=== PATIENT | female | born 1965 | race Caucasian/White ===

== ENCOUNTER 2017-11-07 02:41 | Outpatient (CLI) | payer BC, SELFPAY ==
[2017-11-07 11:13] LABS: Cholesterol 192 mg/dL (50-200); HDL Cholesterol 63 mg/dL (40-60); LDL CHOLESTEROL 121 mg/dL (<100); Triglyceride 81 mg/dL (30-150)
== END 2017-11-07 03:01 ==
PROVIDERS: PCP Emergency Medicine; Visit Provider Nurse Practitioner Family
DX: E78.5 Hyperlipidemia, unspecified (principal)
CPT/HCPCS: 36415; 80061; 83721

== ENCOUNTER 2018-11-07 15:04 | Outpatient (CLI) | payer MEDICAID, SELFPAY ==
--- NOTE | 2018-11-07 | PFT_ITS ---
PULMONARY FUNCTION TEST REPORT Patient - Ciara Terrell DATE OF SERVICE November 07, 2018 REQUESTING PROVIDER Abbie Arevalo M.D. INTERPRETATION OF STUDY Spirometry shows mild obstructive airways disease with no significant bronchodilator response. LUNG VOLUMES - Lung volumes show no evidence of restriction. There is mild to moderate hyperinflation and air trapping. DIFFUSION CAPACITY- Normal. AIRWAY RESISTANCE - Normal. IMPRESSION Mild obstructive airways disease with no significant bronchodilator response. This is associated with mild to moderate hyperinflation and air trapping. Clinical correlation recommended. Maeve Lake M.D. ERIN/ T- 11/13/2018
== END 2018-11-07 15:24 ==
PROVIDERS: PCP Nurse Practitioner Family; Visit Provider Nurse Practitioner Family
DX: J45.909 Unspecified asthma, uncomplicated (principal)
CPT/HCPCS: 94060; 94150; 94726; 94729

== ENCOUNTER 2018-11-12 02:22 | Outpatient (CLI) | payer MEDICAID, SELFPAY ==
[2018-11-12 11:27] LABS: Abs Immature Grans 0.01 k/cumm (0.0-0.09); Absolute Basophil Count 0.04 k/cumm (0.0-0.2); Absolute Eosinophil Count 0.32 k/cumm (0.0-0.7); Absolute Lymphocyte Count 1.86 k/cumm (1.2-3.4); Absolute Monocyte Count 0.43 k/cumm (0.11-0.7); Absolute Neutrophil Count 2.89 k/cumm (1.2-6.7); Basophils % 0.7; Eosinophils % 5.8; HCT 39.9 % (36.0-46.0); HGB 13.2 g/dL (12.0-15.5); Immature Grans % 0.2; Lymphocytes % 33.5; Mean Corp. HGB Concentration 33.1 g/dL (32.0-36.0); Mean Corpuscular Hemoglobin 29.9 pg (27.0-33.0); Mean Corpuscular Volume 90.5 fL (80-95); Mean Platelet Volume 10.4 fL (8.0-11.0); Monocytes % 7.7; Neutrophils % 52.1; Platelet Count 219 x1000/uL (130-400); RBC 4.41 m/cumm (4.00-5.20); RBC Distribution Width 12.6 % (11.7-14.6); White Blood Cell Count 5.55 k/cumm (4.4-10.8)
[2018-11-12 12:29] LABS: ALT 25 U/L (14-59); AST 20 U/L (15-37); Albumin 3.5 g/dL (3.4-5.0); Alkaline Phosphatase 91 U/L (46-116); Anion Gap 9.8 mmol/L (3-11); BUN 13 mg/dL (7-18); Bilirubin, Total 0.5 mg/dL (0.2-1.0); CO2 27.2 mmol/L (21.0-32.0); CREATININE 0.91 mg/dL (0.55-1.02); Calculated LDL 145 mg/dL; Chloride 106 mmol/L (98-107); Cholesterol 213 mg/dL (50-200); Glucose 89 mg/dL (70-100); HDL Cholesterol 54 mg/dL (40-60); Potassium 4.2 mmol/L (3.5-5.1); Sodium 143 mmol/L (136-145); TSH 3.41 uIU/mL (0.36-3.74); Total Protein 6.4 g/dL (6.4-8.2); Triglyceride 73 mg/dL (30-150)
[2018-11-12 15:07] LABS: Hemoglobin A1C 5.7 % (4.5-6.2)
[2018-11-12 20:06] LABS: FREE T4 0.98 ng/dL (0.76-1.46)
[2018-11-14 05:15] LABS: Vitamin D 25 Total 30.3 ng/ml (30-100)
== END 2018-11-12 02:42 ==
PROVIDERS: PCP Nurse Practitioner Family; Visit Provider Nurse Practitioner Family
DX: R73.03 Prediabetes (principal); R53.83 Other fatigue
CPT/HCPCS: 36415; 80053; 80061; 82306; 83036; 84439; 84443; 85025

== ENCOUNTER 2019-01-24 08:17 | Day surgery (SDC) | payer MEDICAID, SELFPAY ==
[2019-01-24 08:36] VITALS: BP 97/65; PULSE 77; RESP 16; TEMP 36.8; O2SAT 95
[2019-01-24] MEDS: Lactated Ringers 1,000 ML 80 ML IV (08:54)
--- NOTE | 2019-01-24 10:14 | W.PM.DSUDISC ---
Discharge Plan Disposition Patient Disposition: HOME Condition: Good Discharge Details Reason For Visit: Colonoscopy Attending Provider: Apolonia Goodson Primary Care Provider: Abbie Arevalo Home Meds and New Rx's Prescriptions: Continued albuterol sulfate [ProAir HFA] 90 mcg/actuation HFA aerosol inhaler 2 puff Inhalation Q4H PRN Qty: 8.5 RF: 4 fluticasone propionate [Allergy Relief (fluticasone)] 50 mcg/actuation spray,suspension 2 spray JOHN DAILY PRNRF: 0 loratadine [Claritin] 10 mg tablet 10 mg PO DAILY PRNRF: 0 montelukast 10 mg tablet 10 mg PO QHS Qty: 90 RF: 4 cholecalciferol (vitamin D3) 1,000 unit capsule 1,000 unit PO BID RF: 0 ascorbic acid (vitamin C) [Vitamin C With Zara Hips] 1,000 mg tablet 1 gm PO BID RF: 0 Symbicort 160-4.5 mcg/actuation HFA aerosol inhaler 1 puff Inhalation BID Qty: 10.2 RF: 4 Discontinued polyethylene glycol 3350 17 gram/dose powder 238 g PO ONCE Qty: 238 RF: 0 bisacodyl [Dulcolax (bisacodyl)] 5 mg tablet,delayed release (DR/EC) 5 mg PO ONCE Qty: 4 RF: 0 Discharge Instructions Additional Instructions: Findings: Your colonoscopy showed mild diverticulosis. No polyps were found. Follow up: Plan for a colonoscopy in 5 years. Please call if you develop: fevers >101.5 Nausea or Vomiting Abdominal pain that is not transient DAY SURGERY UNIT POST COLONOSCOPY INSTRUCTIONS 1. Because there will be medication in your system for the next 24 hours, you may feel a little sleepy. Your coordination will be affected. Therefore: a. Do not drive or operate dangerous equipment for 24 hours. b. Do not drink alcohol beverages for 24 hours (not even beer). c. Plan to go home and rest for the day. 2. Generally there are no restrictions on your activity after a day or so has gone by, but you may feel a bit fatigued for a few days. 3 After you arrive home you may have a light meal and return to a normal diet as you can tolerate it without feeling sick to your stomach. 4. After surgery, you may feel pain or discomfort. This should be only transient, but if it persists please contact your doctor. 5. If there are any questions regarding the findings of your procedure, please feel free to contact your doctor. 6. If you are unable to contact your doctor with a problem, contact the hospital at [phone]. 7. Continue all your regular medications unless directed otherwise. I understand the above instructions and have no questions. Signature of Patient or Responsible Adult Escort Date/Time Name of Responsible Adult Escort Signature of Nurse Date/Time Activity:: Activity as Tolerated Diet:: As Tolerated Discharge Orders Discharge Orders: Discharge Order (Routine); Ordered 01/24/19 Ordered By: Apolonia Goodson DS: Diagnosis Discharge Diagnosis (1) Diverticulosis: Status: Acute
[2019-01-24 10:36] VITALS: BP 103/65; PULSE 72; RESP 16; TEMP 36.4; O2SAT 96
--- NOTE | 2019-01-24 12:38 | COLE_ITS ---
DATE OF PROCEDURE: January 24, 2019 PREOPERATIVE DIAGNOSIS: 1. History of colon polyps. 2. Family history of colon cancer. POSTOPERATIVE DIAGNOSIS: Mild diverticulosis. PROCEDURE: Colonoscopy. SURGEON: Apolonia Goodson M.D. ANESTHESIA: General. INDICATIONS: This is a 53-year-old woman whose last colonoscopy in 2016 showed a tubular adenoma. T he patient has also had a larger polyp removed in the past with the site being tattooed. Her mother was treated for colon cancer. The patient is currently asymptomatic. PROCEDURE: She was placed in the left Escobar position. Propofol was titrated to sedation. Digital re ctal examination revealed no abnormalities. The scope was advanced to the cecum without difficulty. Her prep was excellent. The ileocecal valve was briefly intubated to reveal a normal distal ileum. The scope was slowly withdrawn with no abnormalities seen within the ascending, transverse or descen ding colon. In the mid sigmoid region there was a tattoo with no recurrent or residual polyp identif ied in the region. There was also some mild diverticular change in this vicinity. The remainder of the sigmoid colon and rectum were normal, including on retroflex view. She tolerated the procedure w ell and was stable to recovery. She will need a follow-up colonoscopy in five years. cc: Abbie Arevalo M.D.
== END 2019-01-24 11:30 | disposition home or self-care (01) ==
PROVIDERS: PCP Nurse Practitioner Family; Visit Provider Surgery
PROC: 0DJD8ZZ Inspection of Lower Intestinal Tract, Via Natural or Artificial Opening Endoscopic (ICD-10-PCS; CPT 45378; principal; 2019-01-24 09:30)
DX: Z12.11 Encounter for screening for malignant neoplasm of colon (principal); Z86.010 Personal history of colon polyps; K57.30 Diverticulosis of large intestine without perforation or abscess without bleeding; Z80.0 Family history of malignant neoplasm of digestive organs
CPT/HCPCS: 45378; 81025

== ENCOUNTER 2019-11-18 04:45 | Outpatient (CLI) | payer MEDICAID, SELFPAY ==
[2019-11-18 12:40] LABS: BUN 10 mg/dL (7-18); CREATININE 0.88 mg/dL (0.55-1.02); Calculated LDL 121 mg/dL (<100); Chloride 106 mmol/L (98-107); Cholesterol 191 mg/dL (<200); Glucose 88 mg/dL (74-106); HDL Cholesterol 58 mg/dL (40-60); Potassium 3.8 mmol/L (3.5-5.1); Sodium 142 mmol/L (136-145); Triglyceride 60 mg/dL (<150)
[2019-11-18 13:05] LABS: Hemoglobin A1C 5.5 % (<5.7)
== END 2019-11-18 05:05 ==
PROVIDERS: PCP Nurse Practitioner Family; Visit Provider Nurse Practitioner Family
DX: E78.5 Hyperlipidemia, unspecified (principal); R73.03 Prediabetes
CPT/HCPCS: 36415; 80048; 80061; 83036

== ENCOUNTER 2020-04-26 10:10 | Outpatient (CLI) | payer MEDICAID, SELFPAY ==
[2020-04-27 12:48] LABS: COVID-19 RT-PCR UVMMC Result Positive (Negative)
== END 2020-04-26 10:11 | disposition home or self-care (01) ==
LOC: LBO 10:11
PROVIDERS: PCP Nurse Practitioner Family; Visit Provider Nurse Practitioner Family
DX: Z20.822 Contact with and (suspected) exposure to COVID-19 (principal)
CPT/HCPCS: U0003

== ENCOUNTER 2020-04-29 12:18 | Outpatient (CLI) | payer MEDICAID, SELFPAY ==
[2020-04-29] VITALS (8 sets, daily range): BP systolic 107–121; BP diastolic 65–76; PULSE 83–90; RESP 18; TEMP 37.8–38.6; O2SAT 92–94
[2020-04-29] MEDS: Normal Saline 500 ML 30 ML IV (13:28)
[2020-04-29] MEDS: Normal Saline Flush 10 ML SYR IVP (13:33)
== END 2020-04-29 12:19 | disposition home or self-care (01) ==
PROVIDERS: PCP Nurse Practitioner Family; Visit Provider Family Medicine
DX: U07.1 COVID-19 (principal)
CPT/HCPCS: 96365

== ENCOUNTER 2020-11-12 11:11 | Outpatient (REF) | payer MEDICAID, SELFPAY ==
--- NOTE | 2020-11-12 09:30 | PAPFT_PTH ---
PATIENT: Ciara Terrell LOC: [facility] U#:[id number] AGE/SX: 55/F ROOM: RE11/12/[address]: Lina Coates, PhD UI ENGINEER : 1965 BED: DIS: 11/12/2020 SPEC #: [id number] RECD: 11/12/20 13:04 STATUS: VICTORINO REJs #: [id number] RONNI: 11/12/20 09:[address]: Lina Coates DEPT: REPLACED BY [facility] Cytology RECD BY: Romina Resendez ENTERED: 11/12/20 13:05 SP TYPE: PAPFT OTHR DR: Abbie Arevalo, BASILIA Tissues: 1 - CX/ENDOCX FOR PAP SMEARS Procedures: PAP THIN PREP/[facility] Screening HPV DNA PROBE Comments: [id number]
== END 2020-11-12 11:12 | disposition home or self-care (01) ==
LOC: LBN 11:11
PROVIDERS: PCP Nurse Practitioner Family; Visit Provider Nurse Practitioner
DX: Z12.4 Encounter for screening for malignant neoplasm of cervix (principal); Z11.51 Encounter for screening for human papillomavirus (HPV)
CPT/HCPCS: 88142; 87624

== ENCOUNTER 2021-12-06 03:48 | Outpatient (CLI) | payer MEDICAID, SELFPAY ==
[2021-12-06 12:24] LABS: Hemoglobin A1C 5.8 % (<5.7)
[2021-12-06 12:29] LABS: Anion Gap 3.3 mmol/L (3-11); BUN 13 mg/dL (7-18); CO2 30.7 mmol/L (21.0-32.0); CREATININE 0.9 mg/dL (0.55-1.02); Calcium 9.1 mg/dL (8.5-10.1); Calculated LDL 148 mg/dL (<100); Chloride 105 mmol/L (98-107); Cholesterol 227 mg/dL (<200); Estimated GFR 74.57 (mL/min/1.73m2); Glucose 97 mg/dL (74-106); HDL Cholesterol 67 mg/dL (40-60); Potassium 4.2 mmol/L (3.5-5.1); Sodium 139 mmol/L (136-145); Triglyceride 62 mg/dL (<150)
== END 2021-12-06 03:49 | disposition home or self-care (01) ==
PROVIDERS: PCP Nurse Practitioner Family; Visit Provider Nurse Practitioner Family
DX: E78.5 Hyperlipidemia, unspecified (principal); R73.09 Other abnormal glucose
CPT/HCPCS: 36415; 80048; 80061; 83036

== ENCOUNTER 2022-12-19 16:32 | Outpatient (CLI) | payer MEDICAID, SELFPAY ==
[2022-12-19 15:34] LABS: Hemoglobin A1C 5.7 % (<5.7)
[2022-12-19 17:22] LABS: Anion Gap 8.3 mmol/L (3-11); BUN 15 mg/dL (7-18); CO2 29.7 mmol/L (21.0-32.0); CREATININE 1.1 mg/dL (0.55-1.02); Chloride 106 mmol/L (98-107); Estimated GFR 58.24 (mL/min/1.73m2); Glucose 94 mg/dL (74-106); Potassium 3.9 mmol/L (3.5-5.1); Sodium 144 mmol/L (136-145)
[2022-12-19 21:17] LABS: Lab Add On Test DONE
[2022-12-21 09:23] LABS: Hepatitis C Ab w Rflx HCV PCR Negative (Negative)
== END 2022-12-19 16:33 | disposition home or self-care (01) ==
LOC: LBO 16:33
PROVIDERS: PCP Nurse Practitioner Family; Visit Provider Nurse Practitioner Family
DX: E78.5 Hyperlipidemia, unspecified (principal); R73.03 Prediabetes; J45.30 Mild persistent asthma, uncomplicated; Z00.00 Encounter for general adult medical examination without abnormal findings; Z11.59 Encounter for screening for other viral diseases
CPT/HCPCS: 36415; 80048; 86803; 83036

== ENCOUNTER 2024-01-29 20:40 | Emergency (ER) | payer MEDICAID, SELFPAY ==
[2024-01-29] VITALS (10 sets, daily range): BP systolic 102–152; BP diastolic 49–96; PULSE 87–103; RESP 13–20; TEMP 37; O2SAT 90–98
--- NOTE | 2024-01-29 20:45 | DI.RAD_ITS ---
Exam(s) XR KNEE LT 2V AP,LAT EXAM: XR KNEE LT 2V AP,LAT CLINICAL HISTORY: fall, injury. TECHNIQUE: 2D digital imaging was performed. COMPARISON: No exams were available for comparison FINDINGS: Two portable views: There is ah comminuted and depressed fracture both tibial plateaus, medial lateral and also extending into the tibial metaphysis. There is also a comminuted fracture of the proximal fibula. Joint effu erick-hemarthrosis noted. No radiopaque foreign bodies. No osseous lesions. IMPRESSION: Comminuted and depressed tibial plateau fracture extending into the tibial metaphysis. There is also a comminuted fracture of the proximal fibula. DATA REPOSITORY: RADIATION DOSE DELIVERED:
--- NOTE | 2024-01-29 20:45 | DI.RAD_ITS ---
Exam(s) XR HIP LT COMPLETE AP PELVIS EXAM: XR HIP LT COMPLETE AP PELVIS CLINICAL HISTORY: leg injury. TECHNIQUE: 2D digital imaging was performed. COMPARISON: No exams were available for comparison FINDINGS: Two views No evidence of acute pelvic nor hip fracture. There are 2 surgical nails projected over the intertro chanteric region of the right hip. No fracture seen at this level. No left hip fracture. Pubic fadi i appear intact. SI joints unremarkable. Chronic disc space narrowing noted in the lumbar spine. IMPRESSION: No acute fractures evident DATA REPOSITORY: RADIATION DOSE DELIVERED:
[2024-01-29] MEDS: MORPHine 4 MG/ML SYR IVP ×2 (21:05→23:01)
[2024-01-29] MEDS: ACETAMINOPHEN 650 MG/65 ML BAG 260 MG IVPB (21:06)
[2024-01-29 21:08] LABS: Abs Immature Grans 0.04 10^3/uL (0.0-0.06); Absolute Basophil Count 0.06 10^3/uL (0.0-0.2); Absolute Eosinophil Count 0.27 10^3/uL (0.0-0.7); Absolute Lymphocyte Count 3.52 10^3/uL (1.2-3.4); Absolute Monocyte Count 0.77 10^3/uL (0.1-0.8); Absolute Neutrophil Count 5.65 10^3/uL (1.2-6.7); Basophils % 0.6 %; Eosinophils % 2.6 %; HCT 36.6 % (36.0-46.0); Immature Grans % 0.4 %; Lymphocytes % 34.1 %; MCH 29.6 pg (27.0-33.0); MCHC 32.8 % (32.0-36.0); MCV 90 fL (80-95); MPV 9.8 fL (8.0-11.0); Monocytes % 7.5 %; Neutrophils % 54.8 %; Platelet Count 194 10^3/uL (130-400); RBC 4.06 10^6/uL (3.93-5.22); RDW 12.2 % (11.7-14.6); RDW-SD 39.8 fL; WBC 10.31 10^3/uL (4.4-10.8)
[2024-01-29 21:23] LABS: ALT 19 U/L (14-59); AST 27 U/L (15-37); Alkaline Phosphatase 139 U/L (46-116); Anion Gap 9.1 mmol/L (3-11); BUN 26 mg/dL (7-18); CO2 26.9 mmol/L (21.0-32.0); CREATININE 1.2 mg/dL (0.55-1.02); Calcium 8.5 mg/dL (8.5-10.1); Chloride 109 mmol/L (98-107); Estimated GFR 52.14 (mL/min/1.73m2); Glucose 139 mg/dL (74-106); Potassium 4.1 mmol/L (3.5-5.1); Sodium 145 mmol/L (136-145); Total Protein 6.4 g/dL (6.4-8.2)
--- NOTE | 2024-01-29 22:42 | DI.RAD_ITS ---
Exam(s) XR CHEST 1V IN DI DEPT EXAM: XR CHEST 1V IN DI DEPT CLINICAL HISTORY: trauma. TECHNIQUE: 2D digital imaging was performed. COMPARISON: CR CHEST 2 VIEWS PA,LAT from 05/25/2010 FINDINGS: Single AP portable view. Heart size is upper normal. The mediastinum is not widened. Right lung is clear. There is slightly increased markings in the left upper lobe suprahilar region. There are also surgical clips in left axilla and projected over the left hilar region, not previousl y present. No pleural effusions. No pneumothorax. No obvious fractures. IMPRESSION: Subtle suggestion of left upper lobe infiltrate.No pleural effusions nor pneumothorax. Surgical clips on the left side are noted. DATA REPOSITORY: RADIATION DOSE DELIVERED:
--- NOTE | 2024-01-29 22:42 | DI.RAD_ITS ---
Exam(s) XR TIB/FIB LT EXAM: XR TIB/FIB LT CLINICAL HISTORY: fall injury, deformity proximally. TECHNIQUE: 2D digital imaging was performed. COMPARISON: No exams were available for comparison FINDINGS: 3 views There is a comminuted depressed tibial plateau fracture involving both tibial plateaus and extending through the metaphysis to the level the anterior tibial tubercle. Some displacement evident. There is also a comminuted fracture of the proximal fibula with minimal displacement. There are no f ractures lower down in the tibia and fibula. IMPRESSION: Comminuted tibial plateau fracture extending into the metaphysis and anterior tibial tubercle. Also fracture of the proximal fibula. DATA REPOSITORY: RADIATION DOSE DELIVERED:
--- NOTE | 2024-01-29 22:56 | ED.GENADUL_ITS ---
Discharge Plan Discharge Details Chief Complaint: Orthopedic Primary Care Provider: Abbie Arevalo ED Provider: Romina Bateman Home Meds and New Rx's Prescriptions: No Action omega 0-dhl-uwv-fish oil [Fish Oil] 1,000 mg (120 mg-180 mg) capsule 1 cap PO DAILY ascorbic acid (vitamin C) [Vitamin C With Zara Hips] 1,000 mg tablet 1 gm PO BID budesonide-formoterol [Symbicort] 160-4.5 mcg/actuation HFA aerosol inhaler 2 puff Inhalation BID Qty: 10.2 4RF [id number]-[id number]-[id number] Tablet See Rx Instructions PO DAILY Rx Instructions: 1000mg; 400mg; 25mg orally daily; cholecalciferol (vitamin D3) 50 mcg (2,000 unit) capsule 200 mcg PO DAILY Quercetin w/ Bromelain See Rx Instructions .ROUTE DAILY Rx Instructions: 800mg; 165mg daily; levalbuterol tartrate 45 mcg/actuation HFA aerosol inhaler 2 inh inhalation Q6H Qty: 15 0RF montelukast 10 mg tablet 10 mg PO QHS Qty: 90 3RF letrozole 2.5 mg tablet 2.5 mg PO DAILY Patient Comments: TAKE ONE TABLET BY MOUTH EVERY DAY HPI General Date/Time Provider Initiated Documentation: 01/29/24 20:43 . HPI Narrative: This 58-year-old female with history of left breast CVA with recent mastectomy, asthma, hyperlipidemia, prediabetes presents with report of standing on 3 foot stepstool when the top of the stool broke and she fell down, twisting and planting her left leg. She felt a snap and instant pain and was unable to ambulate. She denies head injury or any additional acquired injuries. She denies any numbness or tingling into her foot or history of coagulopathy. She denies any neck or abdominal pain. She denies any chest pain or shortness of breath. Related Data Home Medications ?Medication ?Instructions ?Recorded ?Confirmed ascorbic acid (vitamin C) 1,000 mg 1 gm PO BID 12/11/18 01/29/24 tablet (Vitamin C With Zara Hips) omega 1-wrw-axz-fish oil 1,000 mg 1 cap PO DAILY 04/10/19 01/29/24 (120 mg-180 mg) capsule (Fish Oil) Quercetin w/ Bromelain See Rx Instructions .Route DAILY 09/29/22 01/29/24 symqaev-qeeqwhdlm-nlxl tablet See Rx Instructions PO DAILY 09/29/22 01/29/24 cholecalciferol (vitamin D3) 50 200 mcg PO DAILY 09/29/22 01/29/24 mcg (2,000 unit) capsule levalbuterol tartrate 45 2 inh inhalation Q6H #15 grams 05/29/23 01/29/24 mcg/actuation aerosol inhaler budesonide-formoterol HFA 160 2 puff inhalation BID #10.2 grams 09/12/23 01/29/24 mcg-4.5 mcg/actuation aerosol inhaler (Symbicort) montelukast 10 mg tablet 10 mg PO QHS #90 tabs 01/01/24 01/29/24 letrozole 2.5 mg tablet 2.5 mg PO DAILY 01/29/24 01/29/24 Previous Rx's ?Medication ?Instructions ?Recorded levalbuterol tartrate 45 2 inh inhalation Q6H #15 grams 05/29/23 mcg/actuation aerosol inhaler budesonide-formoterol HFA 160 2 puff inhalation BID #10.2 grams 09/12/23 mcg-4.5 mcg/actuation aerosol inhaler (Symbicort) montelukast 10 mg tablet 10 mg PO QHS #90 tabs 01/01/24 Allergies Allergy/AdvReac Type Severity Reaction Status Date / Time levonorgestrel AdvReac Severe Vision Verified 01/29/24 20:48 problems, heart racing General Stated Complaint: Orthopedic FRITZ: 3 Exam Narrative Exam Narrative: 58-year-old female alert and oriented, acutely uncomfortable, pupils equal round reactive to light and accommodation, no visible signs of head injury, no cervical spine tenderness, no visible sign of chest wall trauma, lungs clear to auscultation, cardiac rate rhythm regular, no abdominal tenderness or pelvic t enderness appreciated, no left hip tenderness appreciated, no visible signs of trauma, left knee with ecchymosis just distal to the knee with swelling, no obvious deformity, no tenderness to left ankle, neurovascularly intact. GCS 15 right now Course Vital Signs Vital signs: Vital Signs Temperature 37.0 C 01/29/24 20:38 Pulse 103 H 01/29/24 20:38 Respiratory Rate 18 01/29/24 20:38 Blood Pressure 152/96 H 01/29/24 20:38 Pulse Oximetry 98 01/29/24 20:38 Temperature 37.0 C 01/29/24 20:38 Pulse 103 H 01/29/24 20:38 Respiratory Rate 18 01/29/24 20:38 Respiratory Effort Non-Labored 01/29/24 20:45 Blood Pressure 152/96 H 01/29/24 20:38 Pulse Oximetry 98 01/29/24 20:38 Pain Level 9 01/29/24 21:05 Lab/Test Results Lab/Test Results: Laboratory Tests Range/Units 01/29/24 20:48 WBC (4.4-10.8) 10^3/uL 10.31 RBC (3.93-5.22) 10^6/uL 4.06 Hgb (11.2-15.7) g/dL 12.0 Hct (36.0-46.0) % 36.6 MCV (80-95) fL 90 MCH (27.0-33.0) pg 29.6 MCHC (32.0-36.0) % 32.8 RDW (11.7-14.6) % 12.2 Plt Count (130-400) 10^3/uL 194 MPV (8.0-11.0) fL 9.8 Immature Gran % % 0.4 Neutrophils % % 54.8 Lymphocytes % % 34.1 Monocytes % % 7.5 Eosinophils % % 2.6 Basophils % % 0.6 Nucleated RBC % (0.0-0.3) % 0.0 Absolute Neutrophils (1.2-6.7) 10^3/uL 5.65 Absolute Lymphocytes (1.2-3.4) 10^3/uL 3.52 H Absolute Monocytes (0.1-0.8) 10^3/uL 0.77 Absolute Eosinophils (0.0-0.7) 10^3/uL 0.27 Absolute Basophils (0.0-0.2) 10^3/uL 0.06 Sodium (136-145) mmol/L 145 Potassium (3.5-5.1) mmol/L 4.1 Chloride (98-107) mmol/L 109 H Carbon Dioxide (21.0-32.0) mmol/L 26.9 Anion Gap (3-11) mmol/L 9.1 BUN (7-18) mg/dL 26 H Creatinine (0.55-1.02) mg/dL 1.2 H Est GFR (CKD-EPI 2020) (mL/min/1.73m2) 52.14 Glucose (74-106) mg/dL 139 H Calcium (8.5-10.1) mg/dL 8.5 Total Bilirubin (0.2-1.0) mg/dL 0.30 AST (15-37) U/L 27 ALT (14-59) U/L 19 Alkaline Phosphatase (46-116) U/L 139 H Total Protein (6.4-8.2) g/dL 6.4 Albumin (3.4-5.0) g/dL 3.0 L Procedures Orthopedic Splinting/Casting Injury #1: Side: left Lower Extremity Injury Location: knee Lower Extremity Immobilizer: posterior splint Additional Comments: Remains neurovascularly intact pre and postprocedure Medical Decision Making 58-year-old female presenting with trauma to left knee just prior to arrival. Ecchymosis left lower leg and given trauma, I did order x-ray of chest, pelvis, knee, tib-fib. Evidence of severe tibial plateau fracture with intra-articular involvement grade 6 after discussion with our orthopedist, Dr. Genao. Dr Genao feels patient needs transfer to tertiary care facility given this is a shatzker tibial plateau fracture and the risk of compartment syndrome is very high. the patient was placed in a long-leg splint and remains neurologically neurovascularly intact, 2302. No evidence of compartment syndrome at this time, ice applied to either side of site. [facility] 2330, pending return phone call at this time. [facility] has declined patient secondary to capacity. Films were pushed to [facility] at 1120 and facesheet was sent, pending return phone call. 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 HER-2/vesta negative. S/p partial mastectomy, radiation, tamoxifen. Followed annually by [facility] Tubular adenoma of colon (~2015) Surgical History (Updated 01/03/24 @ 11:05 by Abbie Arevalo NP) History of left total mastectomy (11/02/23) History of bilateral tubal ligation S/P colonoscopy (01/24/19) S/P cholecystectomy History of partial mastectomy of left breast (05/2010) Family History Mother , at 74 of renal failure Hyperlipidemia Colon cancer Hypertension Father , at 68 of aneurysm Depression Hyperlipidemia Heart disease Myocardial infarction Hypertension Sister No problems noted. Sister , at 64 of uterine cancer Uterine cancer Hypertension Hyperlipidemia Asthma Depression Brother No problems noted. Son ADHD (attention deficit hyperactivity disorder), inattentive type Asthma Daughter Depression Maternal Grandfather , in his 70s No problems noted. Maternal Grandmother , at 83 Neoplasm Unknown type Heart disease Paternal Grandfather , at 94 Dementia Paternal Grandmother , at 84 Breast cancer Social History Smoking/Tobacco Use Status: Former Tobacco Use tobacco type: cigarettes Second Hand Exposure: Yes Smoking risk assessment performed?: Yes Alcohol Intake: current Alcohol Intake frequency: holidays/special occasions only Alcohol type: wine Drug use: Never Substance use type: does not use Caregiver/Support person: No Household members: spouse and children Housing: house Communication Needs: Corrective Lenses Do you need help understanding health information?: Often current occupation: [employer] Pets and animals: No Sexually active: No Do you think of yourself as: straight/heterosexual Current gender identity: female What is your relationship status?: How often do you talk on the phone with friends or family?: twice per week How often do you get together with friends or relatives?: once per week How often do you attend adventism or temple services?: 4 or more times per year Do you belong to any clubs or organized social groups?: no Panel score (0-1 are the most socially isolated patients): 3 What type of physical activity do you participate in: walking Duration: < 15 minutes/day Frequency: 5-6 times per week Stephany/Catholic: Mormon Seatbelt use: always Drive intox or ride w/intox class b truck driver: No Do you feel safe at home: Yes Do you feel safe in your relationship?: Yes Female Reproductive History Menstrual Menopause type: natural Date of menopause: 11/19/11 History History 3 Para 2 Hx # Term Pregnancies Multiple births Hx # Pregnancies Ectopic pregnancies AB induced Hx Number of Living Children 2 AB spontaneous 1
[2024-01-30] VITALS (16 sets, daily range): BP systolic 124–142; BP diastolic 59–73; PULSE 93–101; RESP 12–19; O2SAT 89–94
--- NOTE | 2024-01-30 00:04 | DI.VRAD_ITS ---
PROCEDURE INFORMATION: Exam: XR Left Tibia and Fibula Exam date and time: 01/29/2024 9:59 PM Age: 58 years old Clinical indication: Injury or trauma; Fracture, traumatic; Closed fracture; Patella or knee; Left; Injury details: Fall - PT unable to move. Best images possible TECHNIQUE: Imaging protocol: Radiologic exam of the left tibia and fibula. Views: 2 views. COMPARISON: CR XR KNEE LT 3V AP,LAT,SHALONDA 01/29/2024 9:53 PM FINDINGS: Bones/joints: Comminuted depressed tibial plateau fracture involving both tibial plateaus, the tibial eminence in the proximal tibial metaphysis. Oblique comminuted nondisplaced fracture through the proximal fibula. Large suprapatellar joint effusion. Soft tissues: Normal. IMPRESSION: 1. Comminuted depressed tibial plateau fracture involving both tibial plateaus, the tibial eminence in the proximal tibial metaphysis. 2. Oblique comminuted nondisplaced fracture through the proximal fibula. 3. Large suprapatellar joint effusion. Dictated and Authenticated by: Marli Mcdermott MD. Ordering:CHRISTIN Vanegas MD
--- NOTE | 2024-01-30 00:05 | DI.VRAD_ITS ---
PROCEDURE INFORMATION: Exam: XR Chest Exam date and time: 01/29/2024 10:23 PM Age: 58 years old Clinical indication: Injury or trauma; Fall; Blunt trauma (contusions or hematomas) TECHNIQUE: Imaging protocol: Radiologic exam of the chest. Views: 1 view. COMPARISON: CT CHEST FOR PULMONARY EMBOLUS 03/09/2017 5:59 PM FINDINGS: Lungs: Perihilar atelectasis. Pleural spaces: Unremarkable. No pleural effusion. No pneumothorax. Heart/Mediastinum: Unremarkable. No cardiomegaly. Bones/joints: Unremarkable. Soft tissues: Left chest wall and axillary surgical clips. IMPRESSION: No acute findings Dictated and Authenticated by: Marli Mcdermott MD. Ordering:CHRISTIN Vanegas MD
--- NOTE | 2024-01-30 00:06 | DI.VRAD_ITS ---
PROCEDURE INFORMATION: Exam: XR Left Hip Exam date and time: 01/29/2024 9:48 PM Age: 58 years old Clinical indication: Injury or trauma; Fall; Blunt trauma (contusions or hematomas); Left; Hip; Injury details: Trauma - knee. Best images possible TECHNIQUE: Imaging protocol: Radiologic exam of the left hip. Views: 2 or 3 views hip with pelvis when performed. COMPARISON: No relevant prior studies available. FINDINGS: Bones/joints: Unremarkable. No acute fracture. Soft tissues: Surgical nails within the proximal right femur. IMPRESSION: No acute findings. Dictated and Authenticated by: Marli Mcdermott MD. Ordering:CHRISTIN Vanegas MD
--- NOTE | 2024-01-30 00:07 | DI.VRAD_ITS ---
PROCEDURE INFORMATION: Exam: XR Left Knee Exam date and time: 01/29/2024 9:53 PM Age: 58 years old Clinical indication: Injury or trauma; Fracture, traumatic; Closed fracture; Patella or knee; Left; Injury details: Fall. PT unable to move - best images possible TECHNIQUE: Imaging protocol: Radiologic exam of the left knee. Views: 1 or 2 views. COMPARISON: BILATERAL EXTREMITY US 03/09/2017 4:25 PM FINDINGS: Bones/joints: Comminuted depressed tibial plateau fracture extending to both tibial plateaus, the tibial eminence in the proximal tibial metaphysis. Comminuted proximal fibula fracture. Large suprapatellar joint effusion. Soft tissues: Normal. IMPRESSION: 1. Comminuted depressed tibial plateau fracture extending to both tibial plateaus, the tibial eminence in the proximal tibial metaphysis. 2. Comminuted proximal fibula fracture. 3. Large suprapatellar joint effusion. Dictated and Authenticated by: Marli Mcdermott MD. Ordering:CHRISTIN Vanegas MD
--- NOTE | 2024-01-30 01:32 | W.EDPROG ---
Date of service: 01/30/24 Time of Service: 01:34 Medical Decision Making This patient was obtained in signout at approximately 11:30 PM with plans to discuss the case with a tertiary care center for transfer as the patient was not excepted by orthopedics here at this facility secondary to the type of fracture, the patient's body habitus, and concerns of possible hypoxia in the operative setting. I discussed case with Dr. Shi at [facility] except the patient as an ED to ED transfer for multistage repair of the left lower extremity fracture. Quality:SDOH Health Related Social Needs: No Data to Display Discharge Plan Disposition Patient Disposition: Transfer-Acute Inpatient Care Specific Acute Inpt Facility: Other Condition: Stable Discharge Details Chief Complaint: Orthopedic Clinical Impression: Closed fracture of left tibia and fibula Primary Care Provider: Abbie Arevalo ED Provider: Chito Restrepo Home Meds and New Rx's Prescriptions: No Action omega 3-zmy-nlz-fish oil [Fish Oil] 1,000 mg (120 mg-180 mg) capsule 1 cap PO DAILY ascorbic acid (vitamin C) [Vitamin C With Zara Hips] 1,000 mg tablet 1 gm PO BID budesonide-formoterol [Symbicort] 160-4.5 mcg/actuation HFA aerosol inhaler 2 puff Inhalation BID Qty: 10.2 4RF pqnqjkt-rszlfbcsf-kkkj Tablet See Rx Instructions PO DAILY Rx Instructions: 1000mg; 400mg; 25mg orally daily; cholecalciferol (vitamin D3) 50 mcg (2,000 unit) capsule 200 mcg PO DAILY Quercetin w/ Bromelain See Rx Instructions .ROUTE DAILY Rx Instructions: 800mg; 165mg daily; levalbuterol tartrate 45 mcg/actuation HFA aerosol inhaler 2 inh inhalation Q6H Qty: 15 0RF montelukast 10 mg tablet 10 mg PO QHS Qty: 90 3RF letrozole 2.5 mg tablet 2.5 mg PO DAILY Patient Comments: TAKE ONE TABLET BY MOUTH EVERY DAY
[2024-01-30] MEDS: MORPHine 4 MG/ML SYR IVP (02:29)
== END 2024-01-30 03:24 | disposition short-term general hospital (02) ==
PROVIDERS: Physician Assistant; Emergency Provider Emergency Medicine Emergency Medical Services; PCP Nurse Practitioner Family
DX: S82.252A Displaced comminuted fracture of shaft of left tibia, initial encounter for closed fracture (principal); S82.452A Displaced comminuted fracture of shaft of left fibula, initial encounter for closed fracture; M25.062 Hemarthrosis, left knee; W11.XXXA Fall on and from ladder, initial encounter; Y93.H9 Activity, other involving exterior property and land maintenance, building and construction; Y92.018 Other place in single-family (private) house as the place of occurrence of the external cause
CPT/HCPCS: 00123; 80053; 96365; 96375; 96376; 99285; 71045; 73502; 73560; 73590; 85025; J0131; J2270

== ENCOUNTER 2024-10-06 14:06 | Outpatient (CLI) | payer MEDICAID, SELFPAY ==
--- NOTE | 2024-10-06 11:30 | DI.RAD_ITS ---
Exam(s) XR CHEST 2V PA LATERAL EXAM: XR CHEST 2V PA LATERAL CLINICAL HISTORY: Cough, R05.9; eval pna. TECHNIQUE: 2D digital imaging was performed. COMPARISON: CR,XR XR CHEST 1V IN DI DEPT from 01/29/2024 FINDINGS: 2 views: Heart size is normal. The mediastinum is not widened. There is now subsegmental platelike atelectasis in both lung bases. No confluent infiltrates and no pleural effusions. No pulmonary edema. Again noted is evidence of left mastectomy and left axillary simon dissection clips IMPRESSION: There is subsegmental platelike atelectasis in both lung bases. This was not evident on chest x-ray of 01/29/2024. DATA REPOSITORY: RADIATION DOSE DELIVERED:
== END 2024-10-06 14:26 ==
LOC: DI 10-16 14:07
PROVIDERS: PCP Nurse Practitioner Family; Visit Provider Nurse Practitioner Family
DX: R05.9 Cough, unspecified (principal); J98.11 Atelectasis
CPT/HCPCS: 71046

== ENCOUNTER 2024-11-13 09:12 | Day surgery (SDC) | payer MEDICAID, SELFPAY ==
--- NOTE | 2024-11-03 10:17 | PDOC.ANES ---
Date of service: 11/03/24 Time of Service: 10:00 Anesthesia Note Report Anesthesia Note: I called and spoke with Ciara about her upcoming colonoscopy. She had some concerns/questions regarding the anesthesia options. She states that with her mastectomy, and orthopedic/fracture surgeries that she had a hard time clearing mental fog. She also states that she doesn't recall issues related to anesthesia and her last colonoscopy (propofol). Discussed that we use just propofol for colos and that her risk of mental fog does exist, but is much lower than her previous larger surgeries. All questions were anwsered, and she understands she can reach out if any further questions arise.
[2024-11-13 09:36] VITALS: BP 115/79; PULSE 86; RESP 18; TEMP 36.5; O2SAT 96
[2024-11-13] MEDS: Lactated Ringers 1,000 ML 80 ML IV (09:56)
--- NOTE | 2024-11-13 10:19 | W.ANESPRE ---
General Info Date of Service Date Performed: 11/13/24 Height: 5 ft 5.5 in Weight: 112.1 kg Body Mass Index (BMI): 40.5 Surgical Procedure: Operation Date: 11/13/24 11:20 Proposed Procedure Side Surgeon vernell Worley MD Meds Allergies and Home Medications Allergies Allergy/AdvReac Type Severity Reaction Status Date / Time levonorgestrel AdvReac Severe Vision Verified 11/13/24 09:29 problems, heart racing Home Medication ?Medication ?Instructions ?Recorded omega 9-kly-qtc-fish oil 1,000 mg 1 cap PO DAILY 04/10/19 (120 mg-180 mg) capsule (Fish Oil) Quercetin w/ Bromelain See Rx Instructions .Route DAILY 09/29/22 mnsavyn-ubsqnnbcd-yzjw tablet See Rx Instructions PO DAILY 09/29/22 cholecalciferol (vitamin D3) 50 200 mcg PO DAILY 09/29/22 mcg (2,000 unit) capsule levalbuterol tartrate 45 2 inh inhalation Q6H #15 grams 05/29/23 mcg/actuation aerosol inhaler montelukast 10 mg tablet 10 mg PO QHS #90 tabs 01/01/24 letrozole 2.5 mg tablet 2.5 mg PO DAILY 01/29/24 budesonide-formoterol HFA 160 2 puff inhalation BID #10.2 grams 07/15/24 mcg-4.5 mcg/actuation aerosol inhaler (Symbicort) bisacodyl 5 mg tablet,delayed 5 mg PO ONCE #4 tabs 10/29/24 release (Dulcolax (bisacodyl)) polyethylene glycol 3350 17 17 g PO ONCE #238 grams 10/29/24 gram/dose oral powder Current Visit Medications: Current Medications Generic Name Dose Route Start Last Admin Trade Name Freq PRN Reason Stop Dose Admin Ringer's Solution 1,000 mls @ 80 mls/hr 11/13/24 06:00 11/13/24 09:56 IV 11/13/24 23:59 80 mls/hr INFUSION ANITA Administration IV Miscellaneous Supplies 1 each 11/13/24 06:00 Iv Access IV 11/13/24 23:59 DIRECTED ANITA Sodium Biphosphate/Sodium Phosphate 133 - 266 ml 11/13/24 06:00 Na Phosphate Enema-Adult 133 Ml Btl HI 11/13/24 23:59 PRN PRN Sodium Chloride 0 ml 11/13/24 06:00 Normal Saline Flush 10 Ml Syr IV 11/13/24 23:59 PRN PRN Sodium Chloride 0 ml 11/13/24 06:00 Normal Saline 10 Ml Vial IJ 11/13/24 23:59 DIRECTED PRN Sterile Water 0 ml 11/13/24 06:00 Water,Injection,Sterile 10 Ml Vial IJ 11/13/24 23:59 DIRECTED PRN PFSH Active Problems Active Problems: Problem Status Onset Code Recurrent cancer of left breast Acute ~09/2023 C50.912 Asthma Chronic J45.909 History of pulmonary embolism Chronic 01/2024 Z86.711 Hyperlipidemia Chronic E78.5 Allergic rhinitis Chronic J30.9 Obesity Chronic E66.9 Sigmoid diverticulosis Chronic K57.30 Medical History Medical History Pulmonary embolism (~01/2024) Ductal carcinoma in situ (DCIS) of left breast (2010) DCIS 2010 S/p partial mastectomy, radiation, tamoxifen IDC 09/2023 s/p total mastectomy Tubular adenoma of colon (~2015) Surgical History Surgical History S/P ORIF (open reduction internal fixation) fracture For complex left tibial plateau fracture and proximal fibular fracture. LCL repair and lateral meniscus repair of left knee also done History of left total mastectomy (11/02/23) History of bilateral tubal ligation S/P colonoscopy (01/24/19) S/P cholecystectomy History of partial mastectomy of left breast (05/2010) Tobacco Smoking/Tobacco Use Status: Never Passive smoking exposure: No Second hand exposure: Yes Alcohol Alcohol Intake: current Alcohol intake frequency: a few times a week Alcohol type: wine and hard liquor Substance Use Substance use: Never Substance use type: does not use Prental History History 3 Para 2 Hx # Term Pregnancies Multiple births Hx # Pregnancies Ectopic pregnancies AB induced Hx Number of Living Children 2 AB spontaneous 1 Vital Signs and Lab Results Vital Signs Most Recent Vital Signs in EMR: Most Recent Vital Signs Temp Pulse Resp BP Pulse Ox 36.5 C 86 18 115/79 96 11/13/24 09:36 11/13/24 09:36 11/13/24 09:36 11/13/24 09:36 11/13/24 09:36 Imaging and Studies Imaging and Studies Study information below may be from another EMR and interpreted by another provider. Please see original notes in EMR for more complete details. Pulmonary Function Summary: 10/2018:IMPRESSION Mild obstructive airways disease with no significant bronchodilator response. This is associated with mild to moderate hyperinflation and air trapping. Clinical correlation recommended. Anesthesia Assessment and Plan Anesthesia History Personal History: No History of Anesthesia Complications Family History: No Family History of Anesthesia Complications Exercise Tolerance Exercise Tolerance: Metabolic Equivalents>4 Pertinent Negatives Pertinent Negatives: No Major Cardiovascular Symptoms or Complaints and No Major Pulmonary Symptoms or Complaints Cardiac & Pulmonary Exam Cardiac Exam: Normal S1/S2 Heart Sounds Pulmonary Exam: Clear Bilateral Breath Sounds Implantable Cardiac Device Does patient have a Pacemaker or an ICD?: No Airway Exam Known Difficult Airway: No Mallampati Class: 2 Mouth Opening: Normal (> 3cm) Thyromental Distance: Less than 3 cm Neck Range of Motion: Full ROM Neck Circumference: Thick Teeth Condition: Normal Dentition ASA Classification ASA Score: ASA 3 Emergency Case?: No NPO Status NPO Status: NPO Clears >2 hours, Solids >8 hours Anesthesia Plan Resuscitation Status: Full Code Anesthesia Technique: General Anesthesia Airway Planned: Natural Airway Monitors Used: Standard Monitors
[2024-11-13 10:40] VITALS: BMI 40.5
--- NOTE | 2024-11-13 11:08 | BOWEL_PTH ---
PATIENT: Ciara Terrell LOC: [facility] U#:[id number] AGE/SX: 59/F ROOM: RE11/13/[address]: Junie Worley MD : 1965 BED: DIS: 11/13/2024 SPEC #: [id number] RECD: 11/13/24 12:14 STATUS: VICTORINO HARDING #: [id number] RONNI: 11/13/24 11:[address]: Junie Worley DEPT: Surgical Specimen RECD BY: Romina Resendez ENTERED: 11/13/24 12:15 SP TYPE: Bowel OTHR DR: BASILIA Ceballos Tissues: 1 - BIOPSY BOWEL 2 - BIOPSY BOWEL Procedures: GROSS AND MICRO LEVEL 4 Comments: [id number]
--- NOTE | 2024-11-13 11:20 | W.COLOREPORT ---
Date of service: 11/13/24 Time of Service: 11:20 Colonoscopy Report Date of procedure: 11/13/24 Pre-op diagnosis general: Screening for colorectal cancer Post-op diagnosis procedure note: same Procedure: Colonoscopy Surgeon: Junie Worley Anesthesia Type: General:No Airway Estimated blood loss (mL): 3 Pathology: other (1. Ascending colon polyp. 2. multiple descending colon polyps) Complications: None Indications: screening for colorectal cancer Prep: Miralax/Dulcolax (Good) Procedure Description: Informed consent was obtained and the patient was taken to the procedure area. The patient was placed in left lateral decubitus position on the procedure table. Timeout was performed. Anesthesia was induced. A lubricated colonoscope was inserted through the anus and passed to the cecum. The cecum was identified by the ileocecal valve and the appendiceal orifice. The scope was then slowly withdrawn and the colonic and rectal mucosa examined. TI intubated and examined. It appears normal. There are no colon or rectal mass lesions, polyps, AVMs. There is no inflammatory change. Sigmoid diverticulosis The scope was retroflexed in the anorectal junction examined. Uncomplicated internal hemorrhoids present. Assessment and plan: Ascending colon polyp Descending colon polyp x2 Next colonoscopy due in 5 years if at least one is tubular adenoma. 3 years if sessile serrated. Timing of next colonoscopy not to exceed 5 years due to family history of colon cancer in mother.
--- NOTE | 2024-11-13 11:22 | PDOC.DSDIS_ITS ---
Date of service: 11/13/24 Discharge Plan Disposition Patient Disposition: Home Discharge Details Attending Provider: Junie Worley Primary Care Provider: Abbie Arevalo Home Meds and New Rx's Prescriptions: Discontinued bisacodyl [Dulcolax (bisacodyl)] 5 mg tablet,delayed release (DR/EC) 5 mg PO ONCE Qty: 4 0RF Rx Instructions: Take per colonoscopy instructions provided by ordering providers office polyethylene glycol 3350 17 gram/dose powder 17 g PO ONCE Qty: 238 0RF Rx Instructions: Take per colonoscopy instructions provided by ordering providers office No Action omega 2-zcc-ucp-fish oil [Fish Oil] 1,000 mg (120 mg-180 mg) capsule 1 cap PO DAILY olvunyh-euckdcmtd-zkko Tablet See Rx Instructions PO DAILY Rx Instructions: 1000mg; 400mg; 25mg orally daily; cholecalciferol (vitamin D3) 50 mcg (2,000 unit) capsule 200 mcg PO DAILY Quercetin w/ Bromelain See Rx Instructions .ROUTE DAILY Rx Instructions: 800mg; 165mg daily; levalbuterol tartrate 45 mcg/actuation HFA aerosol inhaler 2 inh inhalation Q6H Qty: 15 0RF montelukast 10 mg tablet 10 mg PO QHS Qty: 90 3RF budesonide-formoterol [Symbicort] 160-4.5 mcg/actuation HFA aerosol inhaler 2 puff Inhalation BID Qty: 10.2 4RF letrozole 2.5 mg tablet 2.5 mg PO DAILY Patient Comments: TAKE ONE TABLET BY MOUTH EVERY DAY Discharge Instructions Additional Instructions: Colonoscopy showed 3 polyps all removed today. One from ascending colon, two from descending colon. I used a snare on one of the descending colon ones, it was a medium sized polyp. The others were small and removed with the standard tweezer-like forcep. Because of these polyps, I predict your next scope will be in 3-5 years. You may not go longer than 5 years without colonoscopy. We would need to go 3 years if any of todays polyps are sessile serrated polyps. I will let you know by mail wh at the results are and when your next scope will be due. Good job on your prep! Stand Alone Forms: Anesthesia Discharge Inst., Colonoscopy Post Instructions, [facility] Burns ([facility]) Discharge Orders Discharge Orders: Discharge Order (Routine); Ordered 11/13/24 Ordered By: Junie Worley DS: Diagnosis Discharge Diagnosis (1) Encounter for colonoscopy due to history of adenomatous colonic polyps: Status: Acute (2) Family history of colon cancer in mother: Status: Acute (3) Polyp of ascending colon: Status: Acute (4) Polyp of descending colon: Status: Acute
[2024-11-13 11:25] VITALS: BP 108/63; PULSE 83; RESP 16; TEMP 36.4; O2SAT 95
[2024-11-13 11:55] VITALS: BP 123/75; PULSE 76; RESP 16; TEMP 36.4; O2SAT 96
--- NOTE | 2024-11-13 12:54 | W.ANESPOSTOP ---
Postoperative Evaluation Date, Time and Location Date Performed: 11/13/24 Time Performed: 12:55 Patient Location: [facility] Unit Vital Signs Most Recent Imported Vital Signs: Most Recent Vital Signs Temp Pulse Resp BP Pulse Ox 36.4 C L 76 16 123/75 96 11/13/24 11:55 11/13/24 11:55 11/13/24 11:55 11/13/24 11:55 11/13/24 11:55 Pain Score Most Recent Pain Score: Most Recent Pain Score Pain Level 0 11/13/24 11:55 Assessment Mental Status: Awake (Alert & Oriented to Patient Baseline) Airway and Respiratory Function: Patent airway with normal (patient baseline) respiratory exam Cardiovascular Function: Hemodynamically Stable Hydration Status: Adequately Hydrated Nausea & Vomiting: No Nausea or Vomiting Pain: Pt. Denies Any Pain Peripheral Nerve Block: Patient did not receive a nerve block
== END 2024-11-13 12:10 | disposition home or self-care (01) ==
LOC: SUR 09:12
PROVIDERS: PCP Nurse Practitioner Family; Visit Provider Surgery
PROC: 0DJD8ZZ Inspection of Lower Intestinal Tract, Via Natural or Artificial Opening Endoscopic (ICD-10-PCS; CPT 45378; principal; 2024-11-13 11:15)
DX: Z12.11 Encounter for screening for malignant neoplasm of colon (principal); Z80.0 Family history of malignant neoplasm of digestive organs; D12.2 Benign neoplasm of ascending colon; D37.4 Neoplasm of uncertain behavior of colon
CPT/HCPCS: 45380; 88305; J2003; J2704